=== PATIENT | male | born 1945 | race Two or more races ===

== ENCOUNTER 2025-05-21 18:39 | Inpatient (IN) | payer MEDICARE, OTHER ==
[~2025-05-21] VITALS: Ht 188 cm; Wt 94.3 kg
[2025-05-21] MEDS ORDERED: DOCU-141 PO (19:25)
[2025-05-21] MEDS ORDERED: ATOR20TA PO (19:25)
[2025-05-21] MEDS ORDERED: LORA-258 PO (19:25)
[2025-05-21] MEDS ORDERED: SITA50TA PO (19:25)
[2025-05-21] MEDS ORDERED: FAMO20TA8 PO (19:25)
[2025-05-21] MEDS ORDERED: POLY15DR27 EACHEYE (19:25)
[2025-05-21] MEDS ORDERED: LUBI24CA5 PO (19:25)
[2025-05-21] MEDS ORDERED: AMLO10TA59 PO (19:25)
[2025-05-21] MEDS ORDERED: LORAZEPAM 0.5 MG TABLET PO PRN (21:30)
[2025-05-21] MEDS ORDERED: MAG HYDROX/AL HYDROX/SIMETH 30 ML LIQUID UDC PO PRN (21:30)
[2025-05-21] MEDS ORDERED: MAGNESIUM HYDROXIDE 30 ML LIQUID UDC PO PRN (21:30)
[2025-05-21] MEDS ORDERED: TEMAZEPAM 7.5 MG CAPSULE PO PRN (21:30)
[2025-05-21] MEDS ORDERED: METO25TA6 PO (22:33)
[2025-05-21] MEDS ORDERED: MELA1TAB2 PO (22:33)
[2025-05-21 23:37] VITALS: BP 159/62; TEMP 97.8; O2SAT 97
[2025-05-22 08:04] LABS: ASPARTATE AMINOTRANSFERASE 13 U/L (15-37); CREATININE 1.0 mg/dL (0.6-1.3); SODIUM SERUM 142 mmol/L (136-145); TOTAL PROTEIN, SERUM 6.2 g/dL (6.4-8.2); UREA NITROGEN, BLOOD 22 mg/dL (7-18)
[2025-05-22 08:24] VITALS: BP 120/49; TEMP 97.8; O2SAT 97
[2025-05-22] MEDS ORDERED: MELA5TAB20 PO (09:30)
[2025-05-22] MEDS ORDERED: POLY119P2 PO (09:31)
[2025-05-22] MEDS ORDERED: [UNRECOGNIZED DRUG - CODE] PO (09:34)
[2025-05-22] MEDS ORDERED: [UNRECOGNIZED DRUG - OTHER] PO SCH (13:00)
[2025-05-22] MEDS ORDERED: CHOLECALCIFEROL PO SCH (13:00)
[2025-05-22] MEDS: DIVALPROEX 125 MG TABLET.DR PO SCH (14:40)
[2025-05-22 16:53] VITALS: BP 134/68; TEMP 97.8; O2SAT 97
[2025-05-22] MEDS ORDERED: Lubiprostone (Amitiza) 24 MCG) PO SCH (17:00)
[2025-05-22] MEDS: CHOLECALCIFEROL 1,000 UNIT TABLET PO SCH (17:13)
[2025-05-22] MEDS: DOCUSATE SODIUM 100 MG CAPSULE PO SCH (17:14)
[2025-05-22] MEDS: FAMOTIDINE 20 MG TABLET PO SCH (17:14)
[2025-05-22 20:00] VITALS: BP 135/60; TEMP 98.2; O2SAT 95
[2025-05-22] MEDS: METOPROLOL TARTRATE 25 MG TABLET PO SCH (21:45)
[2025-05-22] MEDS: ATORVASTATIN 20 MG TABLET PO SCH (21:45)
[2025-05-23 07:57] LABS: PLATELET COUNT (AUTO) 214 K/uL (152-348); RED BLOOD CELL COUNT(AUTO) 5.01 MIL/uL (4.06-5.63); RED CELL DISTRIBUTION WIDTH 14.9 % (12.1-16.2); WHITE BLOOD COUNT (AUTO) 10.9 K/uL (3.6-10.2)
[2025-05-23 08:17] LABS: CREATININE 1.1 mg/dL (0.6-1.3); SODIUM SERUM 141 mmol/L (136-145); UREA NITROGEN, BLOOD 17 mg/dL (7-18)
[2025-05-23 08:18] VITALS: BP 121/54; TEMP 97.8; O2SAT 97
[2025-05-23] MEDS: LINAGLIPTIN 5 MG TABLET PO SCH (08:20)
[2025-05-23] MEDS: AMLODIPINE 10 MG TABLET PO SCH (08:22)
[2025-05-23] MEDS: MIRALAX 17 GM POWD.PACK PO SCH (09:00)
[2025-05-23] MEDS ORDERED: SITAGLIPTIN PHOSPHATE 25 MG PO SCH (09:00)
[2025-05-23] MEDS ORDERED: POLYETHYLENE GLYCOL 3350 238 GM POWDER PO SCH (09:00)
[2025-05-23] MEDS: LORAZEPAM 0.5 MG TABLET PO PRN (14:53)
[2025-05-23 16:41] VITALS: BP 151/74; TEMP 97.8; O2SAT 97
[2025-05-23 20:00] VITALS: BP 137/61; TEMP 98.9; O2SAT 96
[2025-05-23] MEDS: TEMAZEPAM 7.5 MG CAPSULE PO PRN (20:47)
[2025-05-24 07:39] VITALS: BP 129/78; TEMP 97.6; O2SAT 97
[2025-05-24 16:00] VITALS: BP 123/70; TEMP 97.6; O2SAT 97
[2025-05-24 20:00] VITALS: BP 144/84; TEMP 98.4; O2SAT 96
[2025-05-24] MEDS: QUETIAPINE FUMARATE 25 MG TABLET PO SCH (21:25)
[2025-05-24] MEDS: POLYVINYL ALCOHOL OPHT DROPS 15 ML BOTTLE EACHEYE PRN (21:27)
[2025-05-25 08:24] VITALS: BP 145/58; TEMP 98; O2SAT 98
[2025-05-25] MEDS: ACETAMINOPHEN 325 MG TABLET PO PRN (15:30)
[2025-05-25 15:53] VITALS: BP 168/91; TEMP 98; O2SAT 98
[2025-05-25 20:08] VITALS: BP 156/81; TEMP 98.1; O2SAT 97
[2025-05-26 08:08] VITALS: BP 156/75; TEMP 98.4; O2SAT 96
[2025-05-26 15:16] VITALS: BP 135/73; TEMP 98; O2SAT 98
[2025-05-26 19:36] VITALS: BP 148/71; TEMP 98.1; O2SAT 96
[2025-05-27 08:26] VITALS: BP_SYST 117; BP_SYST 133; BP_DIAS 52; BP_DIAS 58; TEMP 98; TEMP 98.2; O2SAT 98; O2SAT 99
[2025-05-27] MEDS: GLUCERNA SHAKE 237 ML CAN PO SCH (08:56)
[2025-05-27 15:17] VITALS: BP 131/67; TEMP 98.2; O2SAT 99
[2025-05-27 20:01] VITALS: BP 136/66; TEMP 97.9; O2SAT 98
[2025-05-28 08:01] LABS: VALPROIC ACID 19 ug/mL (50-100)
[2025-05-28 08:24] VITALS: BP 122/51; TEMP 98.2; O2SAT 99
[2025-05-28 16:36] VITALS: BP 119/68; TEMP 98.2; O2SAT 99
[2025-05-28 20:00] VITALS: BP 145/65; TEMP 98; O2SAT 96
[2025-05-29 08:24] VITALS: BP 151/72; TEMP 98.2; O2SAT 99
[2025-05-29 16:25] VITALS: BP 134/54; TEMP 98.2; O2SAT 99
[2025-05-29 20:00] VITALS: BP 133/75; TEMP 97.3; O2SAT 97
[2025-05-30 08:44] VITALS: BP 152/62; TEMP 98.2; O2SAT 99
[2025-05-30 14:56] LABS: PLATELET COUNT (AUTO) 223 K/uL (152-348); RED BLOOD CELL COUNT(AUTO) 5.14 MIL/uL (4.06-5.63); RED CELL DISTRIBUTION WIDTH 14.8 % (12.1-16.2); WHITE BLOOD COUNT (AUTO) 11.2 K/uL (3.6-10.2)
[2025-05-30 15:10] LABS: ASPARTATE AMINOTRANSFERASE 9 U/L (15-37); CREATININE 1.0 mg/dL (0.6-1.3); SODIUM SERUM 142 mmol/L (136-145); TOTAL PROTEIN, SERUM 6.9 g/dL (6.4-8.2); UREA NITROGEN, BLOOD 22 mg/dL (7-18)
[2025-05-30 16:33] VITALS: BP 148/60; TEMP 98.2; O2SAT 99
[2025-05-30 20:00] VITALS: BP 117/52; TEMP 98.2; O2SAT 94
[2025-05-30] MEDS: QUETIAPINE FUMARATE 25 MG TABLET PO SCH (20:28)
[2025-05-31 08:19] VITALS: BP 138/54; TEMP 97.9; O2SAT 98
[2025-05-31 16:00] VITALS: BP 124/47; TEMP 98.1; O2SAT 100
[2025-05-31 20:05] VITALS: BP 130/52; TEMP 98.1; O2SAT 99
[2025-06-01 07:45] VITALS: BP 147/74; TEMP 98.2; O2SAT 98
[2025-06-01 19:44] VITALS: BP 142/72; TEMP 98.1; O2SAT 96
[2025-06-02 07:55] VITALS: BP 171/75; TEMP 98; O2SAT 98
[2025-06-02 15:11] VITALS: BP 116/59; TEMP 98; O2SAT 100
[2025-06-02 19:50] VITALS: BP 137/61; TEMP 98.3; O2SAT 98
[2025-06-03 07:41] VITALS: BP 125/68; TEMP 98.1; O2SAT 96
[2025-06-03] MEDS: DIVALPROEX 125 MG TABLET.DR PO SCH (09:30)
[2025-06-03 16:18] VITALS: BP 149/66; TEMP 98.1; TEMP 98.8; O2SAT 98
[2025-06-03] MEDS: DIVALPROEX 250 MG TABLET.DR PO SCH (16:42)
[2025-06-03] MEDS ORDERED: DIVALPROEX 125 MG TABLET.DR PO SCH (17:00)
[2025-06-03 19:47] VITALS: BP 108/63; TEMP 98.1; O2SAT 98
[2025-06-04 07:38] LABS: PLATELET COUNT (AUTO) 195 K/uL (152-348); RED BLOOD CELL COUNT(AUTO) 4.70 MIL/uL (4.06-5.63); RED CELL DISTRIBUTION WIDTH 14.6 % (12.1-16.2); WHITE BLOOD COUNT (AUTO) 8.2 K/uL (3.6-10.2)
[2025-06-04 08:38] VITALS: BP 154/79; TEMP 98.8; O2SAT 98
[2025-06-04 16:19] VITALS: BP 139/81; TEMP 98.1; O2SAT 96
[2025-06-04 19:45] VITALS: BP 142/78; TEMP 98.1; O2SAT 98
[2025-06-05 08:49] VITALS: BP 143/73; TEMP 98.8; O2SAT 98
== END 2025-06-05 11:00 | DRG 885 ==
LOC: GPS 18:39
PROVIDERS: ADMIT Psychiatry & Neurology Psychosomatic Medicine; ATTEND Student in an Organized Health Care Education/Training Program
DX: F39 Unspecified mood [affective] disorder (principal); F03.911 Unspecified dementia, unspecified severity, with agitation; F03.92 Unspecified dementia, unspecified severity, with psychotic disturbance; E86.0 Dehydration; Z91.199 Patient's noncompliance with other medical treatment and regimen due to unspecified reason; Z87.891 Personal history of nicotine dependence; M62.50 Muscle wasting and atrophy, not elsewhere classified, unspecified site; M10.9 Gout, unspecified; K57.30 Diverticulosis of large intestine without perforation or abscess without bleeding; E78.5 Hyperlipidemia, unspecified; Z86.73 Personal history of transient ischemic attack (TIA), and cerebral infarction without residual deficits; D72.829 Elevated white blood cell count, unspecified; K21.9 Gastro-esophageal reflux disease without esophagitis; E11.9 Type 2 diabetes mellitus without complications; E66.9 Obesity, unspecified; K40.90 Unilateral inguinal hernia, without obstruction or gangrene, not specified as recurrent; I10 Essential (primary) hypertension; F32.A Depression, unspecified
CPT/HCPCS: 36415; 80164; 83735; 84100; 84443; 85025; 93005; J3490